=== PATIENT | female | born 1930 | race Caucasian/White ===

== ENCOUNTER 2018-08-20 10:28 | Day surgery (SDC) | payer BC, MEDICARE ==
[~2018-08-20] VITALS: Ht 182.9 cm; Wt 74.3 kg
[~2018-08-20 10:28] MED LIST: FENTANYL PF 100 MCG/2ML IV PRN; HYDROmorphone 1 MG/ML, 1ML IV PRN; LABETALOL 5MG/ML, 20ML IV PRN; MEPERIDINE/PF 25MG/0.5ML IVPush PRN; MIDAZOLAM 1 MG/ML, 2ML IV PRN; ONDANSETRON 2MG/ML, 2ML IVPush PRN; OXYcodone 5 MG/5 ML ORAL.SOL UDC PO PRN; PLEASE ENTER ALLERGIES MC SCH; PLEASE ENTER HEIGHT AND WEIGHT MC SCH
[2018-08-20 11:03] VITALS: BP 177/62
[2018-08-20] MEDS ORDERED: LACTATED RINGERS 1,000 ML IV SCH (11:20)
[2018-08-20] MEDS ORDERED: LEVO88TA4 PO (11:32)
[2018-08-20] MEDS ORDERED: CINA30TA2 PO (11:32)
[2018-08-20] MEDS ORDERED: FURO20TA3 PO (11:32)
[2018-08-20] MEDS ORDERED: ASPI-515 PO (11:32)
[2018-08-20] MEDS ORDERED: METO-93 PO (11:32)
[2018-08-20] MEDS ORDERED: GABA300C10 PO (11:32)
[2018-08-20] MEDS ORDERED: POTASSIUM CL (11:32)
[2018-08-20] MEDS ORDERED: SIMV20TA3 PO (11:32)
[2018-08-20] MEDS ORDERED: PANT40TA5 PO (11:32)
[2018-08-20] MEDS ORDERED: MELA5TAB21 PO (11:32)
[2018-08-20] MEDS ORDERED: CLOP75TA PO (11:32)
[2018-08-20] MEDS ORDERED: DIGO125T PO (11:32)
[2018-08-20] MEDS ORDERED: HYDR-3240 PO (11:36)
[2018-08-20] MEDS ORDERED: POLYETHYLENE GLYCOL (11:36)
[2018-08-20] MEDS ORDERED: MECL12.52 PO (11:36)
[2018-08-20] MEDS ORDERED: ACET325T26 PO (11:36)
[2018-08-20] MEDS ORDERED: PROPOFOL 10 MG/ML, 20ML ONE (11:42)
[2018-08-20] MEDS ORDERED: SUCCINYLCHOLINE 20 MG/ML, 10ML ONE (11:42)
[2018-08-20 11:56] LABS: ALANINE AMINOTRANSFERASE 15 U/L (12-78); ALBUMIN 3.6 g/dL (3.4-5.0); ANION GAP 5 mmol/L (5-15); CALCIUM 10.2 mg/dL (8.5-10.1); CHLORIDE 113 mmol/L (98-107); CREATININE 1.43 mg/dL (0.55-1.02)
[2018-08-20 11:59] LABS: ALKALINE PHOSPHATASE 91 U/L (45-117); BILIRUBIN,TOTAL 0.6 mg/dL (0.2-1.0); TOTAL PROTEIN 7.3 g/dL (6.4-8.2)
== END 2018-08-20 14:00 | disposition home or self-care (01) ==
LOC: OUT 10:28
PROVIDERS: ATTEND Internal Medicine
DX: R13.10 Dysphagia, unspecified (principal); K21.9 Gastro-esophageal reflux disease without esophagitis; I48.91 Unspecified atrial fibrillation; I25.10 Atherosclerotic heart disease of native coronary artery without angina pectoris; I12.9 Hypertensive chronic kidney disease with stage 1 through stage 4 chronic kidney disease, or unspecified chronic kidney disease; N18.9 Chronic kidney disease, unspecified; Z87.39 Personal history of other diseases of the musculoskeletal system and connective tissue; Z98.890 Other specified postprocedural states; Z98.49 Cataract extraction status, unspecified eye; Z90.49 Acquired absence of other specified parts of digestive tract; Z90.710 Acquired absence of both cervix and uterus; Z79.82 Long term (current) use of aspirin; Z96.1 Presence of intraocular lens
CPT/HCPCS: 36415; 43249; 80053; 93005; C1725; J0330; J2704

== ENCOUNTER 2020-01-07 17:03 | Emergency (ER) | payer MEDICARE ==
[~2020-01-07] VITALS: Ht 182.9 cm; Wt 72.0 kg
[~2020-01-07 17:03] MED LIST changes: +ACET325T26 PO; +ASPI-515 PO; +CINA30TA2 PO; +CLOP75TA PO; +DIGO125T85 PO; -FENTANYL PF 100 MCG/2ML IV PRN; +FURO20TA3 PO; +GABA300C10 PO; +HYDR-3240 PO; -HYDROmorphone 1 MG/ML, 1ML IV PRN; -LABETALOL 5MG/ML, 20ML IV PRN; +LEVO88TA4 PO; +MECL12.581 PO; +MELA5TAB21 PO; -MEPERIDINE/PF 25MG/0.5ML IVPush PRN; +METO-93 PO; -MIDAZOLAM 1 MG/ML, 2ML IV PRN; -ONDANSETRON 2MG/ML, 2ML IVPush PRN; -OXYcodone 5 MG/5 ML ORAL.SOL UDC PO PRN; +PANT40TA5 PO; -PLEASE ENTER ALLERGIES MC SCH; -PLEASE ENTER HEIGHT AND WEIGHT MC SCH; +POLYETHYLENE GLYCOL; +POTASSIUM CL; +SIMV20TA19 PO
--- NOTE | 2020-01-07 17:19 | NUR ---
THIS IS AN 89 YO FEMALE BIB EMS FROM [facility] FOR MGLF AFTER TRYING TO CATCH SOMETHING FALLING OFF COUNTER TOP. PATIENT DENIES LOC, DENIES HEAD/NECK/SPINAL PAIN. C/O RIGHT SHOULDER/HIP/KNEE PAIN, SMALL ABRASION TO RIGHT BACK, SMALL HEMATOMA NOTED TO RIGHT SIDE OF SCALP. ON BLOOD THINNERS, TAKES 81MG ASA AND PLAVIX FOR AFIB. A&OX4, MONITORING IN PLACE, VSS, NADN, PIV PLACED BY EMS, NO MEDICATIONS GIVEN EN ROUTE. CALL LIGHT IN REACH, ERP IN ROOM FOR EVAL
--- NOTE | 2020-01-07 18:53 | NUR ---
REPORT GIVEN TO AMARI GREY. PLAN OF CARE DISCUSSED
[2020-01-07 20:09] VITALS: BP 145/79
== END 2020-01-07 20:11 | disposition home or self-care (01) ==
LOC: ED 19:54
DX: S80.01XA Contusion of right knee, initial encounter (principal); S09.90XA Unspecified injury of head, initial encounter; I10 Essential (primary) hypertension; I48.91 Unspecified atrial fibrillation; W18.30XA Fall on same level, unspecified, initial encounter; Y93.89 Activity, other specified; Y92.009 Unspecified place in unspecified non-institutional (private) residence as the place of occurrence of the external cause; Y99.8 Other external cause status; Z96.651 Presence of right artificial knee joint
CPT/HCPCS: 70450; 99284